=== PATIENT | female | born 1990 | race Caucasian/White ===

== ENCOUNTER 2024-12-07 17:26 | Emergency (ER) | payer OTHER, SELFPAY ==
[2024-12-07] VITALS (10 sets, daily range): BP systolic 123–149; BP diastolic 73–83; PULSE 69–87; RESP 11–22; TEMP 36.4; O2SAT 97–100
--- NOTE | ~2024-12-07 | CT_ITS ---
EXAMINATION: CTA chest PE protocol DATE: 12/07/2024 19:57 CDT INDICATION: Palpitations, shortness of breath and positive d-dimer TECHNIQUE: Computed tomographic angiography (CTA) of the chest was performed with 100 mL Omnipaque-35 0 intravenous contrast. The dose-length product was 138.30 mGy-cm. Maximum intensity projection 3D-re constructions of the aorta and other arteries were constructed by the technologist on a separate work station. COMPARISON: None. FINDINGS/OBSERVATIONS: PULMONARY ARTERIES: No filling defect is identified within the main or proximal pulmonary artery. The main pulmonary artery is not enlarged. THORACIC AORTA: No aneurysmal dilatation or dissection is present. The great vessels are intact LUNGS: The lungs are clear. MEDIASTINUM: No morphologically suspicious or pathologically enlarged lymph nodes are identified with in the mediastinum or bilateral axilla. BONES OF THE CHEST: No acute fracture. No significant degenerative disease. No lytic or blastic lesions. HEART: The heart is of normal size, without pericardial effusion. IMPRESSION: No pulmonary embolus. No thoracic aortic dissection. The lungs are clear. Reviewed, dictated and finalized at location A.
--- NOTE | ~2024-12-07 | XR_ITS ---
CHEST RADIOGRAPH, PA AND LATERAL CLINICAL HISTORY: palpitations . COMPARISON: None available TECHNIQUE: PA and lateral views of the chest. FINDINGS The cardiomediastinal silhouette is unremarkable. The lungs are clear. Visualized osseous structures and soft tissues are unremarkable. IMPRESSION: No focal infiltrate or effusion. Reviewed, dictated and finalized at location A.
--- NOTE | 2024-12-07 17:31 | ECG_ITS ---
Test Date: 2024-12-07 17:35:16 Measurements Intervals [place] Rate: 74 P: 55 WY: 134 QRS: 79 QRSD: 82 T: 42 QT: 372 QTc: 415 Interpretive Statements SINUS RHYTHM NONSPECIFIC T-WAVE ABNORMALITY ABNORMAL ECG No previous ECG available for comparison Electronically Signed On 12-08-2024 07:38:15 CDT by Jace Redmond M.D.
--- NOTE | 2024-12-07 18:04 | ED.ARRPALP ---
HPI - Arrhythmia/Palpitations General Chief Complaint: Arrhythmia/Palpitations Stated Complaint: fluttering, arm tingling Time Seen by Provider: 12/07/24 17:44 Source: patient Mode of arrival: ambulatory Limitations: no limitations History of Present Illness HPI narrative: Patient is a 34-year-old female who presents the ED with report of palpitations. Patient reports over the last 1 week, she has been having intermittent palpitations, described as a fluttering in her chest. She also reports having shortness breath over the last 1 week. States this since the worse with certain down. Denies significant aggravation of shortness of breath with exertion. Reports intermittent left-sided chest discomfort. Denies current pain. Reports recent nasal congestion. Denies fevers, pain or swelling in legs, hemoptysis, history of blood clots or heart disease. Patient states she had an EKG in her primary care's office a few years ago which showed a possible arrhythmia. She was referred to have a stress test with Cardiology, but never followed up with this. Related Data Allergies Allergy/AdvReac Type Severity Reaction Status Date / Time No Known Allergies Allergy Verified 12/07/24 17:29 Review of Systems Review of Systems: All systems reviewed & are unremarkable except as noted in HPI. All systems reviewed & are unremarkable except as noted in HPI and below Exam Narrative: GENERAL: Well appearing, well-nourished, non-toxic, in no acute distress. HEAD: Normocephalic, atraumatic. RESPIRATORY: Airway patent, respirations nonlabored. Clear to auscultation bilaterally, no rales, rhonchi, wheezing. No focal lung sounds. CARDIOVASCULAR: Regular rate and rhythm without murmurs, rubs, or gallops. No ectopy heard with auscultation. MUSCULOSKELETAL: Moves all extremities. No gross deformities. No peripheral edema. No calf tenderness. SKIN: Warm, dry, normal color. NEURO: A&O X3. Speech clear. Cranial nerves II-XII grossly intact. Steady gait. No ataxic movements. PSYCHIATRIC: Appropriate mood and affect. Normal interaction. Course Vital Signs Vital signs: Vital Signs Temperature 97.6 F 12/07/24 17:38 Pulse Rate 73 12/07/24 17:38 Respiratory Rate 16 12/07/24 17:38 Blood Pressure 146/73 H 12/07/24 17:38 Pulse Oximetry 99 12/07/24 17:38 Temperature 97.6 F 12/07/24 17:38 Pulse Rate 73 12/07/24 20:44 Respiratory Rate 17 12/07/24 20:44 Blood Pressure 124/83 12/07/24 20:44 Pulse Oximetry 99 12/07/24 20:44 MDM - Arrhythmia/Palpitations MDM Narrative Medical decision making narrative: Patient presented to ED with 1 week history of shortness of breath, intermittent palpitations/fluttering in her chest. Vital signs are stable upon arrival. Patient in no acute distress. EKG without concerning ST changes. No ectopy appreciated. Basic laboratory studies are fairly unremarkable. Stable electrolytes. Stable kidney function. Magnesium was borderline at 1.6. She was given IV replacement. TSH within normal range. Troponin undetectable. Chest x-ray was clear. D-dimer did result mildly elevated to 1.07. CTA of chest was obtained and without evidence of PE or other abnormalities. quality assurance monitor chassis was reviewed from patient's several hours in the ED in there was no ectopy appreciated. No PVCs or other arrhythmias. Remained in sinus rhythm the entire time. Discussed overall reassuring workup with patient. Feel she is safe for discharge home at this time. Discussed follow-up with Cardiology for further evaluation, potential Holter/event monitoring. Patient is in agreement with plan. She feels comfortable going home. Discussed strict return precautions. Discharged in stable condition. Medical Records Attestation: I reviewed the patient's medical records. Lab Data Attestation: I reviewed the patient's lab results. 12/07/24 17:58 12/07/24 17:58 Labs: Lab Results 12/07/24 12/07/24 Range/Units 17:57 17:58 WBC 4.6 (4.5-10.0) K/mm3 RBC 4.24 (4.2-5.4) M/mm3 Hgb 11.0 L (12.0-15.0) g/dL Hct 34.2 L (37.0-47.0) % MCV 80.7 (80-100) fl MCH 25.9 L (26-34) pg MCHC 32.2 (32-36) g/dl RDW 12.7 (11.5-14.5) % Plt Count 233 (150-375) k/mm3 MPV 10.0 (7.4-10.4) fl Immature Gran % (Auto) 0.2 (0-0.5) % Neut % (Auto) 63.0 (45.5-73.1) % Lymph % (Auto) 22.8 (18.3-44.2) % Morris % (Auto) 13.8 H (2.6-8.5) % Eos % (Auto) 0.0 (0-4.4) % Baso % (Auto) 0.2 (0.2-1.2) % Lymph # (Auto) 1.04 (0.9-3.2) K/mm3 Morris # (Auto) 0.6 (0.1-0.6) K/mm3 Eos # (Auto) 0.0 (0-0.3) K/mm3 Baso # (Auto) 0.0 (0.0-0.1) K/mm3 Abs Immat Gran (auto) 0.01 (0.00-0.031) K/mm3 Absolute Neuts (auto) 2.9 (1.3-6.7) K/mm3 Absolute Nucleated RBC 0.000 (0.0-0.012) K/mm3 Nucleated RBC % 0.0 (0.0-0.2) % PT 14.5 (11.1-14.7) Seconds INR 1.1 APTT 26.2 (22.3-36.8) Seconds D-Dimer 1.07 H (<0.48) ug/mL Sodium 133 L (137-145) mmol/L Potassium 3.7 (3.4-5.0) mmol/L Chloride 100 (98-107) mmol/L Carbon Dioxide 25 (22-30) mmol/L Anion Gap 8 (4-12) mmol/L BUN 8 (7-17) mg/dL Creatinine 0.63 L (0.7-1.0) mg/dL Estim Creat Clear Calc 103 ml/min Estimated GFR > 60 (59 - ) Glucose 92 (65-110) mg/dL Calcium 8.5 (8.4-10.2) mg/dL Magnesium 1.6 (1.6-2.3) mg/dL Total Bilirubin 0.2 (0.2-1.3) mg/dL AST 22 (14-36) U/L ALT 17 (6-35) U/L Alkaline Phosphatase 67 (38-126) U/L Troponin I < 0.012 (0.000-0.034) ng/mL Total Protein 8.0 (6.3-8.2) g/dL Albumin 4.2 (3.5-5.1) g/dL Lipase 112 (23-300) U/L TSH (Reflex) 0.769 (0.465-4.68) uIU/mL Imaging Data Attestation: I personally reviewed and interpreted this imaging study as follows: Radiologist's impression: ITS Impressions Chest X-Ray 12/07/24 17:55 IMPRESSION: No focal infiltrate or effusion. Chest CTA 12/07/24 19:57 IMPRESSION: No pulmonary embolus. No thoracic aortic dissection. The lungs are clear. ECG Data EKG #1: Attestation: I personally reviewed and interpreted this ECG as follows: ECG completion date: 12/07/24 ECG completion time: 17:35 EKG Interpretation: normal rate (74), sinus rhythm and non-specific ST changes Discharge Plan Discharge Clinical Impression: Palpitations, Breathlessness Patient Disposition: Home, Self-Care Condition: Stable Instructions: Antibiotic Form, Heart Palpitations (ED), Shortness of Breath (ED) Additional Instructions: Your workup here was reassuring. Continue to monitor symptoms. Recommend following up with Cardiology for possible Holter/event monitoring. Return to an ED if you experience worsening or severe symptoms, difficulty breathing, worsening or severe chest pain, unable to keep down food or drink, pain or swelling in legs, coughing blood, persistent fevers, or any other symptoms of concern. Patient Language: Croatian Follow-up/Referrals: Jace Redmond MD [Physician] - (CARDIOLOGY) PHYSICIAN NOT ON STAFF,NONSTAFF [Primary Care Provider] - Time of Disposition: 20:37
[2024-12-07 18:06] LABS: Basophils Percent Auto 0.2 % (0.2-1.2); Hematocrit 34.2 % (37.0-47.0); Immature Granulocyte Absolute 0.01 K/mm3 (0.00-0.031); Immature Granulocyte Percent A 0.2 % (0-0.5); Lymphocytes Absolute Auto 1.04 K/mm3 (0.9-3.2); Lymphocytes Percent Auto 22.8 % (18.3-44.2); Mean Corpuscular HGB Conc 32.2 g/dl (32-36); Mean Corpuscular Hemoglobin 25.9 pg (26-34); Mean Corpuscular Volume 80.7 fl (80-100); Monocytes Absolute Auto 0.6 K/mm3 (0.1-0.6); Monocytes Percent Auto 13.8 % (2.6-8.5); Neutrophils Absolute Auto 2.9 K/mm3 (1.3-6.7); Platelet Count Result 233 k/mm3 (150-375); Red Blood Count 4.24 M/mm3 (4.2-5.4); Red Cell Distribution Width 12.7 % (11.5-14.5); White Blood Count 4.6 K/mm3 (4.5-10.0)
[2024-12-07 18:16] LABS: Alanine Aminotransferase 17 U/L (6-35); Albumin Level 4.2 g/dL (3.5-5.1); Alkaline Phosphatase 67 U/L (38-126); Anion Gap 8 mmol/L (4-12); Aspartate Amino Transferase 22 U/L (14-36); Bilirubin,Total 0.2 mg/dL (0.2-1.3); Blood Urea Nitrogen 8 mg/dL (7-17); Calcium 8.5 mg/dL (8.4-10.2); Carbon Dioxide 25 mmol/L (22-30); Chloride 100 mmol/L (98-107); Estimated CRCL calculation 103 ml/min; Estimated Glomerular Filt Rate > 60; Glucose 92 mg/dL (65-110); Lipase 112 U/L (23-300); Magnesium 1.6 mg/dL (1.6-2.3); Potassium 3.7 mmol/L (3.4-5.0); Sodium 133 mmol/L (137-145)
[2024-12-07 18:27] LABS: INR 1.1; Prothrombin Time 14.5 Seconds (11.1-14.7)
[2024-12-07 18:28] LABS: Partial Thromboplastin Time 26.2 Seconds (22.3-36.8)
[2024-12-07 18:29] LABS: Troponin I < 0.012 ng/mL (0.000-0.034)
[2024-12-07] MEDS: MAGNESIUM SULF 2 GM/WATER 50ML 2 GM/50 ML BAG IVPB (18:44)
[2024-12-07 18:50] LABS: D Dimer 1.07 ug/mL (<0.48)
[2024-12-07 18:57] LABS: Thyroid Stimulating Hormone Reflex 0.769 uIU/mL (0.465-4.68)
--- NOTE | 2024-12-07 19:19 | PC.NURSE ---
Report received from SANDY Taylor. Assumed care of patient at this time.
--- OUTSIDE RECORDS SUMMARY | 2024-12-07 19:32 | XMS_ITS | Clinical Summary ---
Author Organization [facility] Address [address] [place] [address] Care Team Providers Care Breeder Hen Service Technician Name Role Phone Collin Marsh MD Primary Care Provider [phone] Allergies No known active allergies Medications TRILEPTAL 300 MG tablet 06/26/2021 Active XULANE 150-35 MCG/24HR packet 09/09/2020 Act jacqueline Active Problems No known active problems Social History Tobacco Use Types Packs/Day Years Used Date Smoking Tobacco: Never Smokeless Tobacco: Never Tobacco Cessation:Counseling Given: Not Answered Alcohol Use Standard Drinks/Week Comments Never 0 (1 standard drink = 0.6 oz pur e alcohol) Comments Unknown Sex and Gender Information Value Date Recorded Sex Assigned at Not on file 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 Gender Identity Not on file Sexual Orientation Not on file Last Filed Vital Signs Vital Sign Reading Time Taken Comments Blood Pressure - - Pulse - - Temperature - - Respiratory Rate - - Oxygen Saturation - - Inhaled Oxygen Concentration - - Weight - - Height 162.6 cm (5' 4 ) 02/12/2024 8:03 AM CDT Body Mass Index - - Plan of Treatment Health Maintenance Due Date Last Done Comments Cervical Cancer Screening Pa p Smear (Age 30 to 64) Every 3 Years 1988 Annual Physical 1991 Hepatitis C 2006 DTaP, Tdap and Td Vaccines ( 1 - Tdap) 2007 Hepatitis B Vaccines (1 of 3 - 19+ 3-dose series) 2007 Cervical Cancer Screening Pa p with HPV Testing (Age 30 to 64) Every 5 Years 2018 Cervical Cancer Screening [facility] HPV 2018 COVID-19 Vaccine (3 - 2024-2 5 season) 2024 11/06/2020, 09/16/2020 Influenza Adult (#1) 2024 07/01/2019 HPV Vaccines Aged Out No longer eligi ble based on patient's age to complete this topic Meningococcal B Vaccine Aged Out No l onger eligible based on patient's age to complete this topic Meningococcal Vaccine Aged Out No ana martha eligible based on patient's age to complete this topic Pneumococcal Vaccine: Pediatrics (0 to 5 Years) and At-Risk Patients (6 to 64 Years) Aged Out No longer eligible b ased on patient's age to complete this topic RSV Immunizations Under 20 Months Aged Out No longer eligible b ased on patient's age to complete this topic Insurance [address] [place] [address] Care Teams Breeder Hen Service Technician Relationship Specialty Start Date End Date Collin Marsh MD [address] [place] [address] PCP - General FAMILY PRACTICE 07/26/21
--- OUTSIDE RECORDS SUMMARY | 2024-12-07 19:32 | XMS_ITS | Data Portability ---
Author Organization [facility], [address] [facility] ([place]) Address [address] 4th [place] [address] Care Team Providers Care Dental Receptionist Name Role Phone CALVIN HARRY Primary Care Provider Assessment Encounter Date Assessment Date Assessment LastModified by Organization Details LastModified Time 07/08/2024 07/08/2024 Ember is here tod for follow-up for seizures. She has been having episodes of zoning out recently. 1. We will schedule the patient for a 72-hour EEG for further assessment. It is unclear if these episodes are seizure related. 2. She will go to lab and have her oxcarbazepine level checked. 3. Continue oxcarbazepine 900 mg twice a day. 4. All patient's question concerns were addressed. She agrees with the plan. 5. Further recommendations following testing. [email or web address] Not available 07/08/2024 13:54:37 10/10/2024 10/10/2024 1. The following diagnosis is categorized as a CHRONIC ILLNESS (STABLE/At Pt Goal): Benign nevi. We discussed the importance of watching for new and/or changing lesions. We discussed the worrisome changes to watch for that could indicate a melanoma. We discussed the importance of photoprotection using protective clothing and sunscreen with OTC SPF 30 or higher. Avoid peak hours of sun exposure (10am-3pm). We discussed the importance of regular self-skin examinations. 2. The following diagnosis is categorized as a SELF-LIMITED OR MINOR PROBLEM: We discussed the fact that lentigines are actinically induced and that they are benign. We discussed the fact that they should be watched carefully for change. We discussed the importance of photoprotection using protective clothing and sunscreen with SPF thirty or higher on a regular basis. 3. The following diagnosis is categorized as a CHRONIC ILLNESS : Perioral dermatitis: Discussed diagnosis and treatment options. Female patients advised to stop all medication if planning or gets and to let us know. Discussed changes in OCPs can cause flares, as well as topical/inhaled steroids. Avoid application of topical steroids on face. Avoid fluorinated toothpaste - switch to baking soda/kid's toothpaste (fluoride free)/Ball toothpaste. Recommend guard if using inhaled steroids. Avoid over the counter make up/moisturizers. Pt reports flares with menses PRESCRIPTION DRUG MANAGEMENT was performed including discussion with the patient and/or family member that may include dose, expectations of treatment including potential side effects, review of patient response, and when necessary or clinically appropriate change in medication or dosage. For topical therapy discussed side effects may include irritation/redness , burning sensation upon application, dryness/desquamati on, and the potential for sensitization For topical therapy discussed side effects may include irritation/redness , burning sensation upon application, dryness/desquamati on, and the potential for sensitization Start RX tacrolimus/niacina mide BID, warned of initial burning, black box warning discussed If not at goal, pt to call and consider RX opzlura and/or RX doxy. If persistent, also may need to consider regulating hormones with RX leslie since pt repors flares with cycle 4. 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 DDX: neurofibroma > benign nevus Vs. Spitz nevus Treatment options for the above were reviewed. I suggested we take a biopsy. The risks and benefits of the procedure, the risks and benefits of alternative procedures, as well as the possible consequences of not undergoing the procedure were discussed. The patient verbalized understanding and gives consent to proceed. I took a tangential biopsy. I took a punch biopsy. Suture removal in 7-10 days See scanned dermatology biopsy record. If applicable, Photograph Taken Treatment pending pathology results BIOPSY ADDENDUM: intradermal nevus I asked pt to return 1-2 years for TBSE or sooner prn. Pt will call with any questions or concerns in the meantime. [email or web address] Not available 10/15/2024 20:31:20 Plan of Treatment Reminders Order Date Submit Date Provider Last Modified By Organization Details Last Modified Time Details Appointments Annual Well Woman Visit 30.EST 2024 04:00P M Carolin Brock Not available Not available Not available Martínez hed Patient 10.EST 2025 08:50A M Dr. Carolyn Ramirez Not available Not available Not available Lab surgical patholog y study 2024 025 [facility], [address] [place] [address], [id number], 10/14/2024 11:30:50 oxcarbaz epine, serum 2023 024 [facility], [address] [place] [address], [id number], 07/16/2024 14:39:18 Referral None recorded . Procedures None recorded . Surgeries None recorded . Imaging None recorded . Medication Orders escitalo pram 5 mg tablet 2023 024 [facility] [address] [facility], [address], [place], [place], [id number], 10/28/2024 10:01:59 oxcarbaz epine 300 mg tablet 2023 024 [facility] [address] [facility] [employer], [address], [place], [place], [id number], 07/08/2024 11:24:17 Patient TargetsNo targets recorded. Patient InstructionsNo instructions recorded. Reason for Referral None Reported. Results Created Date Observation Date Name Description Value Unit Range Abnormal Flag Note LastModifiedBy Organization Detail LastModifiedTime 07/10/20 24 07/16/2024 oxcar bazep ine, serum oxcarbazepin e(trileptal) 34 ug/mL 10-35 This test was alice oneil and its perfo rmanc e ginger cteri stics deter mined by [facility]. It has not been clear ed or appro quyen by the Food and Drug Admin istra tion. Detec tion Limit = 1 Not Available [facility] [address] [place] [address], [id number], 07/16/2024 14:39:18 10/10/19 25 10/14/2024 surgi edith patho logy study tissue exam biopsy [facility] [address],[facility] [place] [address] Ph. Rudy Parry MD, PhD, Medic al Direc tor YANET HURST, JANIE Fallon MD Patie nt: JULIENMICHAEL CHRISTOPHER EMBER Eugenio Sampl e ID: [id number] Repor t Statu s: Final :0 1989 Case #: [id number] Age: 34 Y Gende r: F Date Colle cted: 10/10 MRN # : [id number] Date Recei quyen: 10/10 Repor ale Date: 10/14 FINAL DIAGN OSIS: Skin, left poste rior neck, punch biops y: - Intra derma l nevus ICD-1 0: D22.4 Elect manuel lombardi Verif ied by Adalberto Recio MD Elect manuel Signjose turalex 10/14 10:28 SPECI MEN SOURC E: Skin, left poste rior neck, punch biops y GROSS DESCR IPTIO N: The speci men conta iner( s) and requi sitio n have the same patie nt name. Recei quyen in 10% neutr al buffe red forma adalberto for forma adalberto-f ixed paraf fin-e mbedd ed secti ons label ed L poste rior neck is an unori ented 0.6 x 0.5 cm cylin drica l fragm ent of hampton- zapata skin excis ed to a depth of 0.5 cm. A 0.4 x 0.3 x 0.1 cm pink- zapata shiny lesio n is prese nt on the skin surfa ce and is adjac ent to the igor n. The speci men is inked , trise cted, and entir fercho submi tted for histo logic study in one casse tte. [facility] N: [facility] N: Skin biops y, left poste rior neck, neuro fibro ma vs benig n nevus vs Spitz nevus . Not Available [facility] [address] [place] [address], [id number], 10/14/2024 11:30:50 Result Notes None recorded. Problems Name Problem SNOMED Code Status Onset Date Resolution Date Notes Provider Name and Address Organization Details Recorded Time Microscopic hematuria 623877092 Active 2023 Nisha Handy PA-C [address] [place] [address], [phone], [facility] 4 18:22:19 Melanocytic nevus of right upper limb 034304783 Active 2024 [place] [facility] 5 11:05:56 Melanocytic nevus of left lower limb 3068162240989 06 Active 2024 [place] [facility] 5 11:06:04 Neoplasm of uncertain behavior of skin 11530220 Active 2024 [place] [facility] 5 11:06:11 Seborrheic keratosis 083933346 Active 2024 [place] [facility] 5 11:06:17 Rosacea 143161234 Active 2024 [place] [facility] 5 11:09:06 Benign neoplasm of skin of neck 62545903 Active 2024 Carolyn Ramirez MD [address] [place] [address], [phone], [facility] 5 20:31:53 Vitamin D deficiency 71012121 Active 2023 Claudia Draper [facility] 4 11:38:06 Fatigue 71840647 Active 2023 Claudia Draper [facility] 4 11:38:14 Anxiety 99566521 Active 2023 Zakia Morales [facility] 4 17:47:07 Neck pain 40340450 [facility] 17:47:18 Seizure 66461622 [facility] 2023 Zakiaty Morales [facility] 4 17:47:46 Depressive disorder 31208538 [facility] 2023 Zakiaty Morales [facility] 4 17:47:52 Feeling irritable 55204676 [facility] 2023 Zakiaty Morales [facility] 4 17:48:06 Palpitation s 46663403 [facility] 2023 Ashley Borrego [facility] 4 09:43:06 Dyspnea on exertion 48698664 [facility] 2023 Ashley Borrego [facility] 4 09:43:28 Notes:Some problems listed i n Document: #[id number] could not be added to this patient's chart. Please review this document and add these problems to the patient's chart manually as needed. Problem Notes None recorded. Procedures Surgical History Date Name Laterality Status Provider Name and Address Organization Details Recorded Time 4 [place] [facility] Procedure completed Leidy Zuñiga MD [address], [address], [facility] 07/29/2024 23:07:08 4 Date of Last Pap Smear completed Not Available Health Note 07/16/2024 11:00:24 Imaging Results None recorded. Procedure Notes None recorded. Medical Equipment None Reported. Allergies No known drug allergies Medications Name Sig Start Date Stop Date Status Note LastModified by Organization Details LastModified Time Trileptal 300 mg tablet Take 3 tablets twice a day by oral route for 90 days. active Not Available Not Available No t Available escitalopram 5 mg tablet TAKE 1 TABLET EVERY DAY BY ORAL ROUTE FOR 30 DAYS, FOR MOOD. 10/28 completed Not Available Not Available Not Available Vitals Date Recorded Body height Body mass index (BMI) Body weight Heart rate Oxygen saturation Oxygen saturation in Arterial blood by Pulse oximetry Systolic blood pressure Diastolic blood pressure Provider Name and Address Organization Details Last Updated DateTime 162.56 cm 26.1 kg/m2 22126.0 4 g 72 /min 99 % 99 % 125 mm[Hg] 80 mm[Hg] Charis Sidhu [facility] 11:04:53 Date Recorded Body height Provider Name an d Address Organization Details Last Updated DateTime 08/06/2024 162.56 cm Nisha Handy PA-C [address] [place] [address], [id number] 08/06/2024 08:42:06 Social History Question Answer Notes LastModified by Organizat ion Details LastModified Time Tobacco Smoking Status Never Smoker Charis Sidhu [facility] 07/08/2024 11:05:09 Do You Have An Advance Directive? Yes [email or web address] Information not available 04/06/2024 What Is Your Level Of Alcohol Consumption? Occasional [email or web address] Information not available 04/06/2024 How Many Times Per Week Do You Consume Alcohol? Less Than 1 Time Per Week [email or web address] Information not available 04/06/2024 What Is Your Level Of Caffeine Consumption? Occasional [email or web address] Information not available 04/06/2024 What Is Your Code Status? Other [email or web address] Information not available 04/06/2024 Are You Currently Employed? 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 Less Than 1 Time Per Week [email or web address] Information not available 04/06/2024 Do You Have A Medical Power Of Entry Level Installation Technician? No [email or web address] Information not available 04/06/2024 What Was The Date Of Your Most Recent Tobacco Screening? 04/08/2024 [email or web address] Information not available 04/06/2024 What Is Your Relationship Status? Single [email or web address] Information not available 04/06/2024 Do You Use Any Illicit Or Recreational Drugs? No [email or web address] Information not available 04/06/2024 Sex: Unknown Functional Status Question Answer Note LastModified by Organization D etails LastModified Time What is your exercise level? None [email or web address] Information not available 04/06/2024 Mental Status None recorded. Family History Relationship Description Onset Age of this Age Resolved Age Notes LastModified by Organization Details LastModified Time Maternal Grandfather Alzheimer's disease [email or web address] Not available 2023 19:25:37 Father Family history of malignant neoplasm [email or web address] Not available 2023 19:25:37 Paternal Grandfather Chronic obstructive pulmonary disease [email or web address] Not available 2023 19:25:37 Paternal Grandfather Heart disease [email or web address] Not available 2023 19:25:37 Paternal Grandfather Hypertensive disorder [email or web address] Not available 2023 19:25:37 Paternal Grandfather Hypercholest erolemia [email or web address] Not available 2023 19:25:37 Mother Seizure disorder [email or web address] Not available 2023 19:25:38 Mother Disorder of thyroid gland [email or web address] Not available 2023 19:25:38 Medical History Condition Response High Blood Pressure N COPD N Depression N Anxiety Disorder N Arthritis N Cancer N Stroke Y Fibromyalgia N Kidney Disease N Attention-deficit Hyperactivity Disorder N Thyroid Problems N Anemia N Diabetes N Bleeding Disorder N Hyperlipidemia N Asthma N Seizures Y Heart Disease N Osteoporosis N Gynecological History Statement/Question Response Abnormal Pap N Date of Last Pap Smear 07/08/2024 Age at Menarche 10 Current Control Method None Obstetrics History GPAL:G 0 P 0 0 0 0 Immunizations Vaccine Type Date Status Note Provider Nam e and Address Organization Details Recorded Time Influenza, split virus, quadrivalent, preservative 1 completed Zakia Morales [facility] 04/08/2024 16:44:22 COVID-19, mRNA, LNP-S, PF, 100 mcg/0.5mL dose or 50 mcg/0.25mL dose 1 completed Zakia Morales [facility] 04/08/2024 16:44:22 COVID-19, mRNA, LNP-S, PF, 100 mcg/0.5mL dose or 50 mcg/0.25mL dose 1 completed Zakia Andrew null, [facility] 04/08/2024 16:44:22 COVID-19, mRNA, LNP-S, PF, 100 mcg/0.5mL dose or 50 mcg/0.25mL dose 1 completed Zakia Andrew null, [facility] 04/08/2024 16:44:22 varicella 9 completed Zakia Andrew null, [facility] 04/08/2024 16:44:22 varicella 9 completed Zakia Andrew null, [facility] 04/08/2024 16:44:22 Influenza, split virus, trivalent, PF 3 completed [facility] 16:44:22 Influenza, split virus, trivalent, PF 9 completed Zakia Andrew null, [facility] 04/08/2024 16:44:22 Hep B, adult 4 completed [facility] 04/08/2024 16:44:22 Hep B, adult 7 completed [facility] 04/08/2024 16:44:22 Hep B, adult 3 completed Zakia Andrew null, [facility] 04/08/2024 16:44:22 Influenza, split virus, quadrivalent, PF 5 completed Zakia Andrew null, [facility] 04/08/2024 16:44:22 Influenza, split virus, quadrivalent, PF 8 completed Zakia Andrew null, [facility] 04/08/2024 16:44:22 Influenza, split virus, quadrivalent, PF 2 completed [facility]/08/[facility]24 16:44:22 Past Encounters Encounter ID Performer Location Encounter Start Date Encounter Closed Date Diagnosis/Indication Diagnosis SNOMED-CT Code Diagnosis ICD10 Code Diagnosis Note [id number] Nisha Handy PA-C [address] ([place]) [address] [place] [address],[address] [place] [address] 04/08/2024 16:04:27 04/09/2024 16:43:54 Adult health examination 788163798 Z00.00 Ember appears overall stable. We reviewed labs in the office today . she is encouraged to get a regular exercise routine. Hopefully will be easier now that her foot hurts less. Work on dietary modificati ons for overall health and some weight loss. Maintain vitamin D levels at 40-70, which was under 30 when checked in February at level of 27. Lipids were up a little but not bad. [id number] Saba Hughes PA-C [address] [place] [address] [facility] ([place]) [address] [place] [address],[address] [place] [address] 07/08/2024 10:54:50 07/08/2024 14:26:00 Seizure 11503654 R56.9 [id number] Leidy Zuñiga MD [address] [place] [address] [facility] ([place]) [address] [place] [address],[address] [place] [address] 07/19/2024 09:54:20 07/19/2024 16:20:48 Seizure 42590169 R56.9 [id number] Leidy Zuñiga MD [address] [place] [address] [facility] ([place]) [address] [place] [address],[address] [place] [address] 08/01/2024 09:27:21 08/02/2024 07:32:53 Seizure 22312437 R56.9 [id number] Nisha Handy PA-C [address]) [address] [place] [address],[address] [place] [address] 08/06/2024 08:32:43 08/06/2024 12:02:02 Anxiety 14170137 F41.9 This medication should work for both anxiety and suspected worsening depression /possible OCD tendencies . Fatigue 61564906 R53.83 Depressive disorder 3548 9007 F32.A She has had [facility] testing done and escitalopr am is on the better options to choose list. She will let me know if any concerns with the medication Seizure 09902221 R56.9 I will send a message over the to PA in Neuro that sees her to try to clarify what informatio n has been given to me. I advised that State law regulates driving, but I'm not sure of the exact situation here. [id number] Carolyn Ramirez MD [address] [facility] ([place]) [address] [place] [address] 10/10/2024 10:42:43 10/10/2024 11:57:14 Melanocytic nevus of right upper limb 532854196 D22.61 Melanocyti c nevus of left lower limb 7799743605 19935 D22.72 Neoplasm o f uncertain behavior of skin 49989963 D48.5 Rosacea 987247672 L71.9 Benign davis plasm of skin of neck 91724795 D23.4 Health Concerns Section Related Observation LastModified by Organization Detai ls LastModified Time None Recorded Concern Status LastModified by Organization Details LastModified Time None Recorded Advance Directives Directive Y: Payers Encounter Date Sequence Insurance Name Policy Number Policy Bear Covered Member ID Bear Member ID Guarantor Name 07/08/2024 1 [employer] [facility]) [id number] Ember N Ruggless [id number] Ember N Ruggless 07/19/2024 1 [employer] [place] [id number] Ember N Ruggless [id number] Ember N Ruggless 07/22/2024 1 [employer] [place] [id number] Ember N Ruggless [id number] Ember N Ruggless 08/06/2024 1 [employer] [place] [id number] Ember N Ruggless [id number] Ember N Ruggless 10/10/2024 1 [employer] [place] [id number] Ember N Ruggless [id number] Ember N Ruggless Notes Date Note Type Note Provider Name and Address Organization Details Recorded Time 07/08/2024 text/html Ember is here tod ay for follow-up for seizures. She currently is on Trileptal 900 mg twice a day. She comes in today because she feels like she has been having episodes where she is zoning out. She reports last week she was zoning out and someone had to yell at her to get her attention. She is also been more tired. She just feels different after these episodes happen. She is unsure if it says related to her seizures or not. She has also been seeing her primary care and might be starting medication for ADHD or depression. She does feel like her sleep is not very good so that could be a factor as well. She has been on Trileptal since she was a toddler. She had an MRI scan less than 1 year ago. She denies any other changes to her medical history, surgeries or hospitalizations. She has no other new complaints today. Saba Hughes PA-C [address] [place] [address], [phone], [facility] 07/08/2024 13:54:53 08/06/2024 text/html I am seeing Ember today via Telehealth for anxiety. Her life has been turned upside down after going to the ER from her daughters school. She tells me that she was feeling strange, lightheaded, a bit confused after dropped Alonna at school. Her daughter went and got someone and they called agriculture mechanic. Ember reports being conscious and not having any knowledge of a seizure. She has not had a seizure in 20 yrs as far as I know. Her parents met her in the ER and she says they will report no sign of seizure and that no one told them that there was a witnessed seizure. Due to documentation of possible seizure, she is not being allowed to drive. She has a very active 12 y/o daughter and she lives with Ember. Alfredo mother is retired and is helping but her stress level has skyrocketed as a result. Even prior to this event, she was being more forgetful, irritable about minor things and went from OK to over the top anxious and/or mad about things that normally wouldn't affect her that way. She has a counselor and she suggested possibly some medication. Nisha Handy PA-C [address] [place] [address], [phone], [facility] 08/09/2024 20:16:13 10/10/2024 text/html 1 YEAR TBSEConcerns; Back of neck-left dwku-mzlgypd-mojtab d as a pimple, now larger, raised, and painful. Redness of face. Carolyn Ramirez MD [address] [place], [address], [facility] 10/15/2024 20:32:18 OBGyn Episode No OBEpisode recorded.
== END 2024-12-07 20:50 | disposition home or self-care (01) ==
PROVIDERS: Emergency Medicine; Emergency Provider Physician Assistant
DX: R00.2 Palpitations (principal); R06.81 Apnea, not elsewhere classified; R94.31 Abnormal electrocardiogram [ECG] [EKG]
CPT/HCPCS: 36415; 71046; 71275; 80053; 83690; 83735; 84443; 84484; 85025; 85380; 85610; 85730; 93005; 96365; 99284; J3475; Q9967